=== PATIENT | female | born 1985 | race African-American/Black ===

== ENCOUNTER 2016-09-28 17:23 | Emergency (ER) | payer OTHER ==
[~2016-09-28] VITALS: Ht 157.5 cm; Wt 98.4 kg
[~2016-09-28 17:23] MED LIST: [UNRECOGNIZED DRUG - REMARK]
[2016-09-28 17:30] VITALS: BP 122/67
[2016-09-28 18:17] LABS: APPEARANCE,URINE Clear (CLEAR); BILIRUBIN,URINE Negative (NEGATIVE); BLOOD, URINE Trace-intact Ery/uL (NEGATIVE); COLOR,URINE Yellow (YELLOW); KETONES,URINE Negative (NEGATIVE); LEUKOCYTE ESTERASE ,URINE Moderate (NEGATIVE); NITRITE, URINE Negative (NEGATIVE); PROTEIN,URINE Trace mg/dl (NEGATIVE); UGLUCOSE Negative (NEGATIVE); UROBILINOGEN,URINE 0.2 EU/dL (0.2)
[2016-09-28 18:18] LABS: PREGNANCY TEST URINE QUAL NEGATIVE (NEGATIVE)
[2016-09-28] MEDS ORDERED: CEFTRIAXONE 500 MG VIAL ONE (18:27)
[2016-09-28] MEDS ORDERED: LIDOCAINE /MPF 1% VIAL 5 ML VIAL ONE (18:27)
[2016-09-28] MEDS ORDERED: AZITHROMYCIN 250 MG TABLET ONE (18:27)
[2016-09-28] MEDS ORDERED: AZITHROMYCIN 250 MG TABLET PO ONE (18:30)
[2016-09-28] MEDS ORDERED: CEFTRIAXONE 500 MG VIAL IM ONE (18:30)
[2016-09-28 18:32] LABS: ADD URINE CULTURE YES; BACTERIA,URINE Moderate /HPF (None Seen); RBC,URINE 2-3/HPF /HPF (0-2); SQUAMOUS EPITHELIAL CELL,UR Few /HPF (None Seen); WBC,URINE 21-50 /HPF (0-3)
[2016-09-28 18:33] LABS: MUCUS,URINE Moderate /LPF (None Seen); URINE AMORPHOUS URATE Moderate /HPF (None Seen)
== END 2016-09-28 18:55 | disposition home or self-care (01) ==
LOC: ER 17:25
DX: N39.0 Urinary tract infection, site not specified (principal); B37.3 Candidiasis of vulva and vagina; A64 Unspecified sexually transmitted disease; F17.200 Nicotine dependence, unspecified, uncomplicated; G40.909 Epilepsy, unspecified, not intractable, without status epilepticus; Z98.890 Other specified postprocedural states
CPT/HCPCS: 81001; 84703; 87076; 87086; 96372; 99284; 99406; A4606; J0696; J3490; Z7610; 81000-TC

== ENCOUNTER 2016-12-07 00:10 | Emergency (ER) | payer OTHER ==
[~2016-12-07] VITALS: Ht 160 cm; Wt 103.4 kg
--- NOTE | 2016-12-07 00:25 | NUR ---
TO BED 22 A 31 YO FEMALE BB SELF WITH C/O FREQUENT, BURNING, PRESSURE WITH URINATION, POSSIBLE YEAST INFECTION; ITCHING, BURNING. AFEBRILE, VSS. COMFORT MEASURES RENDERED. AWAITING FOR ER MD VANN.
--- NOTE | 2016-12-07 00:43 | NUR ---
urine collected via clean catch, sent to lab.
[2016-12-07 00:51] LABS: APPEARANCE,URINE SL CLOUDY (CLEAR); BILIRUBIN,URINE NEGATIVE (NEGATIVE); BLOOD, URINE NEGATIVE Ery/uL (NEGATIVE); COLOR,URINE YELLOW (YELLOW); KETONES,URINE NEGATIVE (NEGATIVE); LEUKOCYTE ESTERASE ,URINE NEGATIVE (NEGATIVE); NITRITE, URINE NEGATIVE (NEGATIVE); PROTEIN,URINE NEGATIVE (NEGATIVE); UGLUCOSE NEGATIVE (NEGATIVE)
[2016-12-07 00:58] LABS: PREGNANCY TEST URINE QUAL NEGATIVE (NEGATIVE)
[2016-12-07 01:00] LABS: BACTERIA,URINE None seen /HPF (None Seen); MUCUS,URINE Few /LPF (None Seen); RBC,URINE 0-2 /HPF (0-2); SQUAMOUS EPITHELIAL CELL,UR Moderate /HPF (None Seen); WBC,URINE 0-2 /HPF (0-3)
--- NOTE | 2016-12-07 01:21 | NUR ---
Patient discharged to home in stable condition. Written and verbal after care instructions given. Patient verbalizes understanding of instruction. Patient is ambulatory with steady gait, no further complaints.
[2016-12-07 01:22] VITALS: BP 137/70
== END 2016-12-07 01:23 | disposition home or self-care (01) ==
LOC: ER 00:10
DX: B37.3 Candidiasis of vulva and vagina (principal); G40.909 Epilepsy, unspecified, not intractable, without status epilepticus; Z98.890 Other specified postprocedural states
CPT/HCPCS: 81001; 84703; 99283; A4606; Z7610; 81000-TC